=== PATIENT | male | born 1950 | race Two or more races ===

== ENCOUNTER 2024-03-20 06:10 | Day surgery (SDC) | payer MEDICARE, SELFPAY ==
[2024-03-20 07:15] VITALS: BP 140/85; BMI 29.4
[2024-03-20 07:34] VITALS: BMI 29.4
[2024-03-20 08:57] VITALS: BP 113/81
[2024-03-20 09:00] VITALS: BP 118/87
[2024-03-20 09:15] VITALS: BP 126/88
== END 2024-03-20 09:30 | disposition home or self-care (01) ==
LOC: SDS 06:10
PROVIDERS: ATTENDING PHYSICIAN Internal Medicine Gastroenterology
DX: K22.70 Barrett's esophagus without dysplasia (principal); K31.89 Other diseases of stomach and duodenum; K86.9 Disease of pancreas, unspecified
CPT/HCPCS: 43237